=== PATIENT | male | born 1960 | race Caucasian/White ===

== ENCOUNTER 2021-01-01 03:10 | Emergency (ER) | payer OTHER, SELFPAY ==
[2021-01-01 03:12] VITALS: BP 143/79; PULSE 104; RESP 16; TEMP 36.8; O2SAT 98; BMI 22.9
[2021-01-01 03:59] VITALS: O2SAT 97
[2021-01-01 04:16] LABS: COVID-19 Test Negative (Negative); IDNOW Serial# 9DD0AD1C
--- NOTE | 2021-01-01 04:16 | ED_ITS ---
HPI - URI/Sore Throat General Chief Complaint: Upper Respiratory Symptoms Stated Complaint: Sore throat Time Seen by Provider: 01/01/21 03:51 Source: patient Mode of arrival: ambulatory Limitations: no limitations History of Present Illness HPI Narrative: Patient COVID vaccinated had multiple COVID test done negative exposed to patients with COVID at work been having sore throat for last 1 week seen [facility] 3 days ago started on Z-Srinivasa without much response no fever occasional cough patient feels the throat pain is going down further and is worse and his voice is getting more muffled Related Data Previous Rx's Medication Instructions Recorded amoxicillin 875 mg-potassium 1 tab PO BID #20 tab 01/01/21 clavulanate 125 mg tablet (Augmentin) codeine 10 mg-guaifenesin 100 mg/5 10 ml PO Q4-6H PRN #237 ml 01/01/21 mL oral liquid Allergies Allergy/AdvReac Type Severity Reaction Status Date / Time No Known Allergies Allergy Verified 01/01/21 03:52 Review of Systems Review of Systems: Yes all other systems are reviewed and are negative [facility] Past Medical History Medical History Diabetes High cholesterol Throat cancer Surgical History Hx of CABG Social History Social History Patient Tobacco Use Status: Never used Tobacco Use of substances other than those prescribed or required for medical reasons: No Advance Directives: No Physical Exam Vital Signs: Vital Signs: Last Vital Signs Temp 98.4 F 01/01/21 04:48 Pulse 87 01/01/21 04:48 Resp 18 01/01/21 04:48 BP 142/80 H 01/01/21 04:48 Pulse Ox 97 01/01/21 04:48 Body Mass Index 22.9 Appearance: Alert. Oriented X3. No acute distress. ENT: Pharynx normal. Oral Mucosa moist raspy voice Neck: Normal inspection. Neck supple. CVS: Normal heart rate and rhythm. Pulses normal. Respiratory: No respiratory distress. Equal air entry bilateral, Abdomen: Soft and nontender. Skin: Skin warm and dry. Normal skin color. Normal skin turgor. Extremities: No lower extremity edema. Neuro: Oriented X 3. MDM - URI/Sore Throat Lab Data Labs: Lab Results 01/01/21 Range/Units 03:54 COVID-19 ([facility]) Negative (Negative) COVID-19 Clin Com See Note Discharge Plan Discharge Clinical Impression: Laryngitis, acute Patient Disposition: Home, Self-Care Instructions: Laryngitis (ED) Additional Instructions: Saline gargles Antibiotic as advised Follow with PCP if not better Prescriptions: New codeine-guaifenesin 10-100 mg/5 mL liquid 10 ml PO Q4-6H PRN (Reason: cough) Qty: 237 RF: 0 amoxicillin-pot clavulanate [Augmentin] 875-125 mg tablet 1 tab PO BID Qty: 20 RF: 0 Interventions: ED Discharge Assessment Last Done: 01/01/21 04:48 Discharge Date/Time: 01/01/21 04:55
[2021-01-01 04:48] VITALS: BP 142/80; PULSE 87; RESP 18; TEMP 36.9; O2SAT 97
[2021-01-01] MEDS: Amoxicillin/Potassium Clav 875 MG TABLET PO (04:52)
== END 2021-01-01 04:55 | disposition home or self-care (01) ==
PROVIDERS: Emergency Provider Internal Medicine; PCP Internal Medicine
DX: J04.0 Acute laryngitis (principal); Z20.822 Contact with and (suspected) exposure to COVID-19; Z79.899 Other long term (current) drug therapy
CPT/HCPCS: 36415; 87635; 99283; 99285